=== PATIENT | male | born 1955 | race Caucasian/White ===

== ENCOUNTER 2025-09-08 07:23 | Emergency (ER) | payer OTHER ==
[2025-09-08] MEDS ORDERED: Acetaminophen 500 MG TAB ONE (07:43)
[2025-09-08 08:40] LABS: #Basophils 0.04 10x3/uL (0.0-0.2); #Eosinophils 0.49 10x3/uL (0.0-0.5); #Monocytes 0.59 10x3/uL (0.0-1.1); #Neutrophils 4.31 10x3/uL (1.5-8.4); %Basophils 0.6 % (0.0-2.0); %Eosinophils 7.1 % (0.0-6.0); %Lymphocytes 21.1 % (18.0-47.0); %Monocytes 8.5 % (0.0-10.0); %Neutrophils 62.4 % (40.0-75.0); Hematocrit 25.1 % (38.8-50.0); Hemoglobin 8.3 g/dL (13.5-17.5); Mean Corpuscular Hemoglobin 32.0 pg (27.0-33.0); Mean Corpuscular Volume 96.9 fL (81.2-95.1); Red Blood Cell (RBC) Count 2.59 10x6/uL (4.32-5.72); White Blood Cell (WBC) Count 6.91 10x3/uL (3.5-10.5)
[2025-09-08 08:46] LABS: ALT (SGPT) 36 U/L (Less than 45); AST (SGOT) 78 U/L (11-34); Albumin 1.9 g/dL (3.1-4.5); Alkaline Phosphatase 168 U/L (40-110); Anion Gap 10 mmol/L (10-20); BUN (Urea Nitrogen) 9 mg/dL (8.4-25.7); Bilirubin, Total 4.4 mg/dL (0.3-1.2); Calc. Creatinine Clearance 0 mL/min (70-130); Calcium 7.6 mg/dL (7.8-10.44); Carbon Dioxide 19 mmol/L (23-31); Chloride 109 mmol/L (98-107); Globulin 4.5 g/dL (2.4-3.5); Glucose 99 mg/dL (80-115); Lipase 42 U/L (8-78); Magnesium 1.7 mg/dL (1.6-2.6); Potassium 3.5 mmol/L (3.5-5.1); Sodium 134 mmol/L (136-145)
[2025-09-08 09:11] LABS: Platelet Count 92 10x3/uL (130-400)
[2025-09-08 09:12] LABS: Platelet Adequacy Comment Appears Decreased
[2025-09-08 11:42] LABS: Glucose, Urine (Dipstick) Normal (Negative); Leukocyte 100 (Negative); Protein, Urine (Dipstick) 30 mg/dl (Neg-Trace); Specific Gravity, Urine 1.010 (1.005-1.030)
[2025-09-08 11:47] LABS: INR-International Normal Ratio 1.3; Prothrombin Time 14.2 sec (9.5-12.1)
[2025-09-08 11:50] LABS: CAUTI Indications for Culture Pelvic or flank pain; RBC/HPF Greater than 50 HPF (0-3)
[2025-09-08 11:51] LABS: Bacteria/HPF 1+ HPF (None Seen)
[2025-09-08 11:52] LABS: Urine Culture Reflex No No
[2025-09-08] MEDS ORDERED: Sodium Bicarbonate 2.5 MEQ/5 ML SDV ONE (12:14)
[2025-09-08 13:36] LABS: BF Segmented Neutrophils 22 %; Cell Count Non Hematic 18 %
== END 2025-09-08 14:36 ==
LOC: EEVIPCON 07:23 → CSHERS 07:23
DX: D64.9 Anemia, unspecified (principal); R18.8 Other ascites; N20.0 Calculus of kidney; D69.6 Thrombocytopenia, unspecified; W19.XXXA Unspecified fall, initial encounter
CPT/HCPCS: 49083; 70450; 71045; 72125; 74177; 76705; 80053; 81001; 83690; 83735; 85025; 85610; 87070; 87205; 89051; 93005